=== PATIENT | female | born 1950 | race Caucasian/White ===

== ENCOUNTER 2018-04-01 09:29 | Emergency (ER) | payer OTHER ==
[2018-04-01 09:34] VITALS: BP 150/85; PULSE 80; TEMP 97.8; BMI 31.0
--- NOTE | 2018-04-01 09:52 | PDOC ---
Attending Attestation - Resident Resident Name: Nusrat Levy - ED Attending Attestation I have performed the following: I have examined & evaluated the patient, The case was reviewed & discussed with the resident, I agree w/resident's findings & plan, Exceptions are as noted - HPI HPI: 04/01/18 10:06 68yo female with a mechanical trip and fall at work with a R temporal hematoma and ecchymosis. No loc. No neck pain. Tripped over electrical tape for [employer] at work. Sent from Urgent Care for a head ct for medical clearance to go back to work. Pt denies blurred vision. No paresthesias. No c spine ttp. No n/v/d. NO cp/sob. No ann. - Physicial Exam PE: 04/01/18 10:07 Gen: aaox3, nad head: R temporal small hematoma and ecchymosis. mild ttp HEENT: EOMI, PERRL, MMM Neck: no midline c spine ttp. Supple Heart: +s1s2 reg lungs: cta b/l abd: soft, nt/nd +bs ext: no c/c/e neuro: cn ii-xii grossly intact, muscle strength 5/5 UE and LE, sensation intact UE and LE skin: ecchymosis to R temporal region - Medical Decision Making 04/01/18 09:52 I, Dr. Marta Garcia, DO, attest that this document has been prepared under my direction and personally reviewed by me in its entirety. I further attest, that it accurately reflects all work, treatment, procedures and medical decision -making performed by me. 04/01/18 10:10 a/p: 68yo female with hx of asthma with a closed head injury -R temporal hematoma - neuro intact -no antiplts or anticoags -will send for head ct -ambulated with a steady gait -denies wanting tylenol -will monitor and reassess -most likely dc to home 04/01/18 10:42 ct shows L frontal encephalomalacia and R scalp hematoma no acute bleeding neuro intact stable for d/c to home resident discussed the head ct findings in detail.
--- NOTE | 2018-04-01 10:26 | PDOC ---
History of Present Illness - General Chief Complaint: Injury Stated Complaint: HEAD INJURY Time Seen by Provider: 04/01/18 09:50 History Source: Patient Exam Limitations: No Limitations - History of Present Illness Initial Comments: 04/01/18 10:00 This is a 68 YOF with h/o mild intermittent asthma (takes Brio infrequently and states sxs very well controlled) who p/w head injury sustained from mechanical GLF at about 7 am today. She notes having been at work, was walking and tripped on cardboard that had been laid out to cover an electrical cord for [employer]. She had no preceding symptoms and denies LOC. Her only symptom since the incident is pain to a right superior forehead contusion which she sustained from the fall. She denies n/v, vision change, balance issues, walking issues, n/ t/w focally, neck pain, etc. This was a work related injury. She was seen by her work RN who recommended she get medically evaluated and actually requested this for her to be able to return to work. The patient went to and was instructed to come into the ED for head CT. The patient believes she has had a CT before and never had issues with claustrophobia or anxiety. Past History - Past Medical History Allergies/Adverse Reactions: Allergies Allergy/AdvReac Type Severity Reaction Status Date / Time No Known Allergies Allergy Verified 04/01/18 09:30 Home Medications: Ambulatory Orders NK [No Known Home Medication] 04/01/18 Asthma: Yes COPD: No Other medical history: DENIES - Suicide/Smoking/Psychosocial Hx Smoking History: Never smoked Have you smoked in the past 12 months: No Information on smoking cessation initiated: No Hx Alcohol Use: (social) Review of Systems - Review of Systems Able to Perform ROS?: Yes Comments:: 04/01/18 10:00 GEN: no fever, chills, generalized weakness, malaise, unintentional weight change, loss of appetite, or difficulty sleeping HEENT: right forehead/scalp contusion, no ear pain, congestion, sore throat, rhinorrhea, nosebleed, vision change, or eye pain CV: no chest pain, palpitations, syncope, edema, or exercise intolerance RESP: no cough, wheezing, or SOB GI: no nausea, vomiting, diarrhea, constipation, black/bloody stool, abdominal pain, or appetite change : no dysuria, hematuria, frequency, incontinence, retention, pruritis, bleeding, or discharge MSK: no weakness, joint swelling, limping, joint pain, or muscle pain NEURO: see HEENT but otherwise no headaches, seizures, numbness, tingling, focal weakness, or head trauma PSYCH: no insomnia, behavior change, suicidality, homicidality, or substance use SKIN: no jaundice, rashes, cuts, bruises, scars, or lesions *Physical Exam - Vital Signs Last Vital Signs Temp Pulse Resp BP Pulse Ox 97.8 F 80 16 150/85 96 04/01/18 09:29 04/01/18 09:29 04/01/18 09:29 04/01/18 09:29 04/01/18 09:29 - Physical Exam Comments: Initial Vital Signs Temp Pulse Resp BP Pulse Ox 97.8 F 80 16 150/85 96 04/01/18 09:29 04/01/18 09:29 04/01/18 09:29 04/01/18 09:29 04/01/18 09:29 04/01/18 10:00 GENERAL: nontoxic and well-appearing, nourished, A/Ox4, no acute distress, speaking in full sentences, answers questions appropriately HEENT: right superior frontal raised contusion without cephalohematoma, not boggy, overlying 1 cm abrasion which is superficial and not requiring any repair , , no raccoon eyes, no hernández sign, no hemotympanum, no CSF rhinorrhea/otorrhea , no jaw malocclusion, PERRLA, EOMI, moist mucous membranes NECK: no midline ttp, no spinal stepoff or deformity, full ROM, supple CARDIOVASCULAR: regular rate and rhythm, normal S1S2, MGR, radial and DP pulses 2+ and symmetric, capillary refill <2 seconds, extremities warm and well- perfused LUNGS/RESPIRATORY: no respiratory distress, normal and symmetric chest movements during respirations, lungs CTA bilaterally, equal breath sounds, no cyanosis, no nail clubbing GI/ABDOMEN: symmetric appearance, normoactive bowel sounds, soft, no tenderness to palpation, no midline pulsatile masses, no palpated organomegaly : no CVA tenderness, normal external appearance, no lesions BACK: no midline ttp or stepoff or deformity of thoracic or lumbar spine EXTREMITIES: distal pulses 2+, warm and well-perfused, no LE edema SKIN: warm and dry, no pallor, no jaundice, no bruising, no rash, no skin breakdown, no cuts, no lesions NEUROLOGICAL: GCS 15, CN II-XII grossly intact, ambulating with normal gait, moving all extremities, 5/5 strength proximally and distally, no facial droop, no decreased sensation Moderate Sedation - Procedure Monitoring Vital Signs: Procedure Monitoring Vital Signs Temperature 97.8 F 04/01/18 09:29 Pulse Rate 80 04/01/18 09:29 Respiratory Rate 16 04/01/18 09:29 Blood Pressure 150/85 04/01/18 09:29 O2 Sat by Pulse Oximetry (%) 96 04/01/18 09:29 Medical Decision Making - Medical Decision Making 04/01/18 10:37 Pt p/w fall and head injury. Initial Vital Signs Temp Pulse Resp BP Pulse Ox 97.8 F 80 16 150/85 96 04/01/18 09:29 04/01/18 09:29 04/01/18 09:29 04/01/18 09:29 04/01/18 09:29 Exam: As noted in Physical Exam section. DDX IBNLT: most likely simple scalp contusion, very unlikely concussion, ICH, skull fracture, facial bone fracture, etc W/U ordered: Head CT TX ordered: Tylenol CT: Nothing acute. Right frontal encephalomalacia which appears chronic. Reassessment: Patient states feels very well, slight right frontal pain, wants Tylenol 04/01/18 10:48 Patient has very superficial abrasion and is offere tDap as she does not remember the date of her last update. She refuses, does not want to get the vaccination, understands risks. The Pt has gotten significant relief of symptoms while in the ED. They have been observed without AMS, n/v, LOC, or focal neuro findings in the ED. Workup is not concerning for emergency-level pathology at this time. The Pt is appropriate for discharge with close outpatient follow up. They are comfortable with this plan and will follow up with their primary care provider in 1-3 days. Return precautions for concussion and CHI are discussed and they will come back to the ER if necessary. *DC/Admit/Observation/Transfer Diagnosis at time of Disposition: Fall from ground level Scalp contusion Qualifiers: Encounter type: initial encounter Qualified Code(s): S00.03XA - Contusion of scalp, initial encounter - Discharge Dispostion Disposition: HOME Condition at time of disposition: Stable Decision to Admit order: No - Referrals - Patient Instructions Additional Instructions: You were seen in the ER for a head injury. We did lab work and a head CT and there were no new emergency findings. You have a chronic finding called encephalomalacia in the left side of the skull, which is not an injury from your fall today. Just be sure to tell your PCP and follow up on this. After our assessment, we do not believe you are having a medical emergency at this time, and we believe you are safe to go home. Please follow up with your primary care provider in 1-3 days. Call their clinic as soon as possible, tell them you were seen in the ER, and tell them you need an appointment. If you have any new or worsening symptoms, especially loss of consciousness, confusion, dizziness, numbness, tingling, weakness of one side or part of your body, worsening severe headache, vision changes, difficulty balancing, or any other symptoms, please come back to the ER at any time (24 hours a day). If you are having severe or life threatening symptoms, or symptoms that make it unsafe to drive or have someone drive you, please call 911. - Post Discharge Activity Forms/Work/School Notes: Back to Work
[2018-04-01] MEDS ORDERED: ACETAMINOPHEN 500 MG TABLET (FP) PO ONE (10:47)
[2018-04-01] MEDS ORDERED: ACETAMINOPHEN 325 MG TABLET (FP) ONE (10:50)
== END 2018-04-01 11:00 | disposition home or self-care (01) ==
LOC: FER 09:29
DX: S00.03XA Contusion of scalp, initial encounter (principal); W18.09XA Striking against other object with subsequent fall, initial encounter; Y93.89 Activity, other specified; Y92.89 Other specified places as the place of occurrence of the external cause; Y99.0 Civilian activity done for income or pay; J45.909 Unspecified asthma, uncomplicated
CPT/HCPCS: 70450-TC; 99282-25

== ENCOUNTER 2019-01-22 11:24 | Emergency (ER) | payer OTHER ==
--- NOTE | 2019-01-22 11:36 | PDOC ---
History of Present Illness - General Chief Complaint: Respiratory Stated Complaint: COUGH Time Seen by Provider: 01/22/19 11:35 - History of Present Illness Initial Comments: 01/22/19 14:02 pt presents to the Ed complaining of wheezing and shortness of breath consistent with, but worse than, prior asthma attacks. States that she was diagnosed with asthma by an ENT who put her on brio. Denies fevers. urgent care [employer] stat[facility]hat she has been there multiple times for asthma. Given albuterol MDI x 2 and prednisone in urgent care. Patient remained hypoxic to 92 % on RA, so sent to the ED. Past History - Past Medical History Allergies/Adverse Reactions: Allergies Allergy/AdvReac Type Severity Reaction Status Date / Time No Known Allergies Allergy Verified 01/22/19 11:26 Home Medications: Ambulatory Orders Albuterol Sulfate Inhaler - [Ventolin HFA Inhaler -] 1 - 2 inh PO Q4H #1 inhaler 01/22/19 Levalbuterol Tartrate [Xopenex Hfa] 15 gm IH ASDIR 01/22/19 Montelukast Sodium [Singulair] 10 mg PO DAILY 01/22/19 Prednisone [Deltasone] 40 mg PO DAILY 4 Days #8 tablet 01/22/19 Asthma: Yes (ENVIRONMENTAL) COPD: No - Psycho Social/Smoking Cessation Hx Smoking History: Never smoked Have you smoked in the past 12 months: No Information on smoking cessation initiated: No Hx Alcohol Use: (occasional) Review of Systems - Review of Systems Able to Perform ROS?: Yes Is the patient limited Georgian proficient: No Constitutional: No: Symptoms Reported, See HPI, Chills, Diaphoresis, Fever, Loss of Appetite, Malaise, Night Sweats, Weakness, Weight Stable, Unintentional Wgt. Loss, Unexplained wgt Loss, Other HEENTM: No: Symptoms Reported, See HPI, Eye Pain, Blurred Vision, Tearing, Recent change in vision, Double Vision, Cataracts, Ear Pain, Ocular Prothesis, Ear Discharge, Nose Pain, Nose Congestion, Tinnitus, Nose Bleeding, Hearing Loss , Throat Pain, Throat Swelling, Mouth Pain, Dental Problems, Difficulty Swallowing, Mouth Swelling, Other Respiratory: Yes: Cough, Wheezing. No: Orthopnea, Shortness of Breath, SOB with Exertion, SOB at Rest, Stridor, Productive cough, Hemoptysis, Other Cardiac (ROS): No: Symptoms Reported, See HPI, Chest Pain, Edema, Irregular Heart Rate, Lightheadedness, Palpitations, Syncope, Chest Tightness, Other ABD/GI: No: Symptoms Reported, See HPI, Abdominal Distended, Abd. Pain w/ defecation, Blood Streaked Bowels, Constipated, Diarrhea, Difficulty Swallowing , Nausea, Poor Appetite, Poor Fluid Intake, Rectal Bleeding, Vomiting, Indigestion, Abdominal cramping, Tarry Stools, Other : No: Symptoms Reported, See HPI, Burning, Dysuria, Discharge, Frequency, Flank Pain, Hematuria, Incontinence, Pain, Urgency, Testicular Mass, Testicular Swelling, Lesions, Testicular Pain, Other Musculoskeletal: No: Symptoms Reported, See HPI, Back Pain, Gout, Joint Pain, Joint Swelling, Muscle Pain, Muscle Weakness, Neck Pain, Joint Stiffness, Other *Physical Exam - Vital Signs Last Vital Signs Temp Pulse Resp BP Pulse Ox 98.2 F 113 H 20 157/92 95 01/22/19 11:25 01/22/19 11:25 01/22/19 11:25 01/22/19 11:25 01/22/19 11:25 - Physical Exam Comments: 01/22/19 14:19 gen: alert, NAD CV: rrr no m/r/g Pulm: + wheezing good air entry Abd: soft, non tender, non distended, no guarding or rebound Ext: no edema ED Treatment Course - LABORATORY CBC & Chemistry Diagram: 01/22/19 12:00 01/22/19 12:00 Medical Decision Making - Medical Decision Making 01/22/19 14:22 Pt presents to the ED complaining of wheezing and shortness of breath consistent with prior asthma attacks. Slightly hypoxic on ED arrival, now improved. Patient feels improved and is requesting to go home. Will discharge home with rx for albuterol and prednisone and follow up with her PMD. 01/22/19 14:25 Discharge - Discharge Information Problems reviewed: Yes Clinical Impression/Diagnosis: Asthma Qualifiers: Asthma severity: mild Asthma persistence: unspecified Asthma complication type : with acute exacerbation Qualified Code(s): J45.901 - Unspecified asthma with ( acute) exacerbation Condition: Good Disposition: HOME - Admission No - Additional Discharge Information Prescriptions: Albuterol Sulfate Inhaler - [Ventolin HFA Inhaler -] 1 - 2 inh PO Q4H #1 inhaler Prednisone [Deltasone] 40 mg PO DAILY 4 Days #8 tablet Prescription Drug Monitoring Program (I-STOP) results: I-STOP not reviewed - Follow up/Referral - Patient Discharge Instructions Patient Printed Discharge Instructions: DI for Asthma -- Adult Additional Instructions: you came to the ED for wheezing and shortness of breath that were most likely caused by your asthma. We gave you nebs and steroids in the ED and you felt better. Make sure that you take the prednisone until it is all gone. Make sure that you follow up with Dr. Murdock this week. Return to the ED for worsening symptoms, including severe shortness of breath that does not go away with your inhaler. - Post Discharge Activity
[2019-01-22 11:41] VITALS: TEMP 98.2; BMI 32.8
[2019-01-22] MEDS: ALBUTEROL SO4 2.5/IPRATROPIUM 0.5 INH SOL 3 ML VIAL.NEB. NEB SCH ×4 (11:50→13:21)
[2019-01-22] MEDS ORDERED: ALBUTEROL SO4 2.5/IPRATROPIUM 0.5 INH SOL 3 ML VIAL.NEB. NEB ONE ×2 (11:54→12:07)
[2019-01-22 12:24] LABS: BASO % 1.3 % (0-2.0); EOS % 5.2 % (0-4.5); HEMATOCRIT 46.9 % (32.4-45.2); HEMOGLOBIN 15.3 GM/dl (10.7-15.3); LYMPH % 18.9 % (8-40); MCH 28.8 pg (25.7-33.7); MCHC 32.7 g/dl (32.0-36.0); MONO % 5.7 % (3.8-10.2); NEUT % 68.9 % (42.8-82.8); PLATELET COUNT 423 K/MM3 (134-434); RBC 5.33 M/mm3 (3.60-5.2); RDW 12.6 % (11.6-15.6); WHITE BLOOD COUNT 9.4 K/mm3 (4.0-10.8)
[2019-01-22 12:36] LABS: ALBUMIN 3.9 g/dl (3.4-5.0); BILIRUBIN,TOTAL 0.8 mg/dl (0.2-1); CALCIUM 9.8 mg/dl (8.5-10); CREATININE 0.9 mg/dl (0.55-1.3); TOT PROT 7.4 g/dl (6.4-8.2)
[2019-01-22 14:10] VITALS: BP 126/69; PULSE 98
== END 2019-01-22 15:00 | disposition home or self-care (01) ==
LOC: FER 11:24
PROC: 3E0F7GC Introduction of Other Therapeutic Substance into Respiratory Tract, Via Natural or Artificial Opening (ICD-10-PCS; principal; 2019-01-22)
DX: J45.998 Other asthma (principal)
CPT/HCPCS: 36415; 71045-TC-FY; 80053; 85025; 99283-25